=== PATIENT | male | born 1960 | race Caucasian/White ===

== ENCOUNTER → 2016-12-26 | Outpatient (CLI) | payer OTHER | LOC: HEART 5 12-18 08:45 | DX: I25.10 Atherosclerotic heart disease of native coronary artery without angina pectoris (principal); R94.39 Abnormal result of other cardiovascular function study | CPT/HCPCS: 78452; A9502; J2785 ==

== ENCOUNTER → 2020-10-11 | Outpatient (CLI) | payer BC, OTHER ==
[~2020-10-11] MED LIST: AMLODIPINE BESY10 MG PO; GLUCOPHAGE 500500 MG PO; HYDROCODON-ACE1 EAC4 PO; LISINOPRIL40 MG PO; NOVOLOG FL100 UNIT/1 SC; SPIRIVA HANDIH18 MCG INH; ST. JOSEPH ASPI81 M1 PO; SYMBICORT 160-1 INHA INH; TOPROL XL100 MG PO; TOUJEO MAX300 UNIT/1 SQ; VENTOLIN INHALER; XARELTO20 MG PO; ZOCOR40 MG PO
[2020-10-11 09:17] LABS: HEMOGLOBIN 14.9 gm/dl (14.0-17.5); RED BLOOD COUNT 4.87 M/UL (4.20-5.50); WHITE BLOOD COUNT 7.8 K/UL (4.5-11.0)
== END ==
LOC: OPSV2 07:53 → EDSTATUS 08:00 → OPSV2 08:00
PROVIDERS: Orthopaedic Surgery
DX: Z01.818 Encounter for other preprocedural examination (principal); M19.011 Primary osteoarthritis, right shoulder
CPT/HCPCS: 36415; 71046; 85025; 87081; 93005

== ENCOUNTER → 2020-10-21 | Outpatient (CLI) | payer BC, OTHER ==
[2020-10-21 11:39] LABS: BUN/CREATININE RATIO 13 (0-10)
== END ==
LOC: LAB 10:31
PROVIDERS: Orthopaedic Surgery
DX: Z01.812 Encounter for preprocedural laboratory examination (principal); M19.90 Unspecified osteoarthritis, unspecified site
CPT/HCPCS: 36415; 80048; 86850; 86900; 86901

== ENCOUNTER 2020-10-22 06:19 | Inpatient (IN) | payer BC, OTHER ==
[~2020-10-22] VITALS: Ht 188 cm; Wt 110.7 kg
[2020-10-22] MEDS ORDERED: GLUCOPHAGE 500500 MG PO (07:22)
[2020-10-22] MEDS ORDERED: XARELTO20 MG PO (07:23)
[2020-10-22] MEDS ORDERED: LISINOPRIL40 MG PO (07:24)
[2020-10-22] MEDS ORDERED: TOPROL XL100 MG PO (07:25)
[2020-10-22] MEDS ORDERED: TOUJEO MAX300 UNIT/1 SQ (07:26)
[2020-10-22] MEDS ORDERED: NOVOLOG FL100 UNIT/1 SC (07:28)
[2020-10-22] MEDS ORDERED: ZOCOR40 MG PO (07:29)
[2020-10-22] MEDS ORDERED: SYMBICORT 160-1 INHA INH (07:30)
[2020-10-22] MEDS ORDERED: AMLODIPINE BESY10 MG PO (07:30)
[2020-10-22] MEDS ORDERED: ST. JOSEPH ASPI81 M1 PO (07:31)
[2020-10-22] MEDS ORDERED: SPIRIVA HANDIH18 MCG INH (07:32)
[2020-10-22] MEDS ORDERED: VENTOLIN INHALER (07:33)
[2020-10-23 05:22] LABS: RED BLOOD COUNT 4.28 M/UL (4.20-5.50); WHITE BLOOD COUNT 12.7 K/UL (4.5-11.0)
[2020-10-23 05:39] LABS: BUN/CREATININE RATIO 14 (0-10)
[2020-10-23] MEDS ORDERED: HYDROCODON-ACE1 EAC4 PO ×2 (15:54→16:06)
== END 2020-10-23 11:17 | disposition home or self-care (01) | DRG 483 ==
LOC: ZOBSOF 06:19 → MED SURG 4 15:22
PROVIDERS: ADMIT Orthopaedic Surgery
PROC: 0RRJ0JZ Replacement of Right Shoulder Joint with Synthetic Substitute, Open Approach (ICD-10-PCS; principal; 2020-10-22 07:30)
PROC: 0LS30ZZ Reposition Right Upper Arm Tendon, Open Approach (ICD-10-PCS; 2020-10-22 07:30)
DX: M19.011 Primary osteoarthritis, right shoulder (principal); I48.0 Paroxysmal atrial fibrillation; E11.9 Type 2 diabetes mellitus without complications; I10 Essential (primary) hypertension; J44.9 Chronic obstructive pulmonary disease, unspecified; Z20.822 Contact with and (suspected) exposure to COVID-19; G47.33 Obstructive sleep apnea (adult) (pediatric); M19.90 Unspecified osteoarthritis, unspecified site; Z87.891 Personal history of nicotine dependence; Z79.01 Long term (current) use of anticoagulants; Z79.899 Other long term (current) drug therapy
CPT/HCPCS: 36415; 71045; 73020; 80048; 82962; 83880; 85025; 94664; 94760; 97161; C1776; J0592; J0690; J1100; J1885; J2001; J2250; J2704; J2710; J2795; J3010; J7030; J7120; J7197

== ENCOUNTER → 2021-05-19 | Outpatient (CLI) | payer BC ==
[~2021-05-19] MED LIST changes: +ASPIRIN EC81 MG PO; +DILTIAZEM ER120 M1 PO; +FLECAINIDE ACET50 MG PO; +PROAIR DIGIHAL90 MCG INH; -ST. JOSEPH ASPI81 M1 PO; -VENTOLIN INHALER
== END ==
LOC: KOH-I 10:31
DX: Z87.891 Personal history of nicotine dependence (principal); K80.20 Calculus of gallbladder without cholecystitis without obstruction
CPT/HCPCS: 71271

== ENCOUNTER 2021-07-07 13:37 | Observation (INO) | payer BC ==
[~2021-07-07] VITALS: Ht 188 cm; Wt 111.1 kg
[~2021-07-07 13:37] MED LIST changes: -DILTIAZEM ER120 M1 PO; -FLECAINIDE ACET50 MG PO
[2021-07-07 14:28] LABS: HEMOGLOBIN 16.6 gm/dl (14.0-17.5); RED BLOOD COUNT 5.27 M/UL (4.20-5.50); WHITE BLOOD COUNT 9.4 K/UL (4.5-11.0)
[2021-07-07 14:53] LABS: BUN/CREATININE RATIO 15 (0-10)
[2021-07-07] MEDS ORDERED: FLECAINIDE ACET50 MG PO (17:48)
[2021-07-07] MEDS ORDERED: DILTIAZEM ER120 M1 PO (17:48)
[2021-07-08] MEDS ORDERED: MULTAQ 400 MG400 MG PO (13:16)
== END 2021-07-08 14:48 | disposition home or self-care (01) ==
LOC: ER1 13:37 → PROG CARE 16:25 → CDU 16:25 → PROG CARE 20:00
PROVIDERS: Preventive Medicine Occupational Medicine; ADMIT Internal Medicine Infectious Disease
DX: I48.0 Paroxysmal atrial fibrillation (principal); I48.20 Chronic atrial fibrillation, unspecified; Z79.01 Long term (current) use of anticoagulants; G47.33 Obstructive sleep apnea (adult) (pediatric); E11.9 Type 2 diabetes mellitus without complications; I10 Essential (primary) hypertension; E78.5 Hyperlipidemia, unspecified; Z87.891 Personal history of nicotine dependence; Z79.82 Long term (current) use of aspirin; Z79.4 Long term (current) use of insulin; Z20.822 Contact with and (suspected) exposure to COVID-19; R07.9 Chest pain, unspecified; E66.9 Obesity, unspecified; R00.1 Bradycardia, unspecified; Z88.8 Allergy status to other drugs, medicaments and biological substances
CPT/HCPCS: 36415; 71045; 80053; 81001; 82550; 82553; 82962; 83735; 83874; 83880; 84443; 84484; 85025; 85652; 86140; 93005; 93270; 94640; 94660; 94760; G0378; J7030; U0002

== ENCOUNTER → 2021-08-24 | Outpatient (CLI) | payer BC ==
[~2021-08-24] MED LIST changes: +DILTIAZEM ER120 M1 PO; +FLECAINIDE ACET50 MG PO; +MULTAQ 400 MG400 MG PO
== END ==
LOC: US 12:28
DX: R31.9 Hematuria, unspecified (principal)

== ENCOUNTER → 2021-08-29 | Outpatient (CLI) | payer BC | LOC: KOH-I 08-26 12:00 | DX: N20.0 Calculus of kidney (principal) | CPT/HCPCS: 74176 ==

== ENCOUNTER → 2021-09-23 | Outpatient (CLI) | payer BC ==
[~2021-09-23] MED LIST changes: +AMIODARONE HCL200 MG PO; +AMIODARONE HCL400 MG PO; +DILTIAZEM 24HR120 M1 PO; +FLOVENT DISKUS50 MCG INH; -GLUCOPHAGE 500500 MG PO; +METFORMIN HCL1000 MG PO; +METOPROLOL SUC100 MG PO; +NOVOLOG FL100 UNIT/1 SQ; +PACERONE200 MG PO; +SPIRIVA RESPIMAT4 GM INH; +VENTOLIN/PROVE0.5 ML INH; +[UNRECOGNIZED DRUG - CODE] SC
== END ==
LOC: CATH 07:30
DX: I48.91 Unspecified atrial fibrillation (principal); I11.0 Hypertensive heart disease with heart failure; I50.42 Chronic combined systolic (congestive) and diastolic (congestive) heart failure; I25.10 Atherosclerotic heart disease of native coronary artery without angina pectoris; J44.9 Chronic obstructive pulmonary disease, unspecified; E78.5 Hyperlipidemia, unspecified; I65.29 Occlusion and stenosis of unspecified carotid artery; E66.9 Obesity, unspecified; Z20.822 Contact with and (suspected) exposure to COVID-19; Z87.891 Personal history of nicotine dependence
CPT/HCPCS: 93005

== ENCOUNTER → 2021-10-20 | Outpatient (CLI) | payer BC | LOC: HEART 5 13:36 | DX: R00.2 Palpitations (principal); I48.0 Paroxysmal atrial fibrillation ==

== ENCOUNTER → 2021-11-28 | Outpatient (CLI) | payer BC | LOC: ECHO 10:45 → NM 12-06 13:00 → HEART 5 12-13 08:00 | DX: I20.9 Angina pectoris, unspecified (principal); I48.91 Unspecified atrial fibrillation; I08.1 Rheumatic disorders of both mitral and tricuspid valves | CPT/HCPCS: ECHO; 93306 ==

== ENCOUNTER → 2021-12-06 | Outpatient (CLI) | payer BC | LOC: NM 13:00 | DX: I20.9 Angina pectoris, unspecified (principal); I48.91 Unspecified atrial fibrillation; Q21.9 Congenital malformation of cardiac septum, unspecified | CPT/HCPCS: 78452; 93017; A9502; J2785 ==

== ENCOUNTER → 2022-05-29 | Outpatient (CLI) | payer BC | LOC: KOH-I 11:23 | DX: Z87.891 Personal history of nicotine dependence (principal) | CPT/HCPCS: 71271 ==